=== PATIENT | female | born 1995 | race African-American/Black ===

== ENCOUNTER 2018-01-16 18:45 | Emergency (ER) | payer MEDICAID ==
[~2018-01-16] VITALS: Ht 167.6 cm; Wt 73.5 kg
[2018-01-16 19:35] VITALS: BP 135/68
== END 2018-01-16 19:35 | disposition home or self-care (01) ==
LOC: ED 18:45
DX: M54.5 Low back pain (principal)
CPT/HCPCS: J1885

== ENCOUNTER 2018-05-16 16:48 | Emergency (ER) | payer BC ==
[~2018-05-16] VITALS: Ht 167.6 cm; Wt 73.9 kg
[2018-05-16 17:12] VITALS: Ht 167.6 cm; Wt 73.9 kg
[2018-05-16 19:27] VITALS: BP 121/66
== END 2018-05-16 19:27 | disposition home or self-care (01) ==
LOC: ED 16:48
DX: K29.20 Alcoholic gastritis without bleeding (principal)
CPT/HCPCS: J1885; Q0162